=== PATIENT | male | born 1995 | race Caucasian/White ===

== ENCOUNTER 2018-06-25 21:06 | Emergency (ER) | payer BC ==
[~2018-06-25] VITALS: Ht 170.2 cm; Wt 65.0 kg
--- NOTE | 2018-06-25 21:20 | NUR ---
PT MOVED TO TRAUMA 3 AFTER NOT RESPONDING TO ERP AND VOMITING. PT MORE AWAKE AND POSITIVE GAG IN PLACE AND PROTECTING HIS AIRWAY. PT TO BE OBS FOR NOW.
[2018-06-25] MEDS ORDERED: ONDANSETRON 2MG/ML, 2ML IVPush ONE (21:30)
--- NOTE | 2018-06-25 21:57 | NUR ---
PT AROUSES TO TOUCH, NOT VERBAL OR FOLLOWING COMMANDS.
[2018-06-25] MEDS ORDERED: PLEASE ENTER ALLERGIES MC SCH (22:00)
--- NOTE | 2018-06-25 23:01 | NUR ---
PT REMAINS SLEEPING. AROUSES TO TOUCH, HOLDS HEAD UP. NOT FOLLOWING COMMANDS. VSS
[2018-06-25 23:15] LABS: ANION GAP 8 mmol/L (5-15); CALCIUM 8.4 mg/dL (8.5-10.1); CHLORIDE 113 mmol/L (98-107); CREATININE 0.75 mg/dL (0.7-1.3)
--- NOTE | 2018-06-26 00:04 | NUR ---
PT MOANING AND MOVING EXTREMITIES TO VOICE. STILL CANNOT GET PT TO TELL ME HIS NAME. VSS.
--- NOTE | 2018-06-26 01:08 | NUR ---
PT REMAINS ASLEEP WITH MINIMAL RESPONSE TO VERBAL AND PHYSICAL STIMULI. VSS.
--- NOTE | 2018-06-26 02:08 | NUR ---
PT AWAKE FOLLOWING COMMANDS. ABLE TO AMBULATE IN ROOM. VSS. UPDATED POC
[2018-06-26 02:23] VITALS: BP 111/74
== END 2018-06-26 02:24 | disposition home or self-care (01) ==
LOC: EDBD 21:06 → ED 06-26 01:55
DX: F10.121 Alcohol abuse with intoxication delirium (principal); G92 Toxic encephalopathy
CPT/HCPCS: 36415; 80048; 80307; 99283